=== PATIENT | female | born 1930 | race Caucasian/White ===

== ENCOUNTER 2018-03-08 15:04 | Emergency (ER) | payer MEDICARE, MEDICAID ==
[~2018-03-08] VITALS: Ht 167.6 cm; Wt 63.5 kg
[2018-03-08 16:38] LABS: Albumin 2.1 g/dL (3.4-5.0); BUN/Creatinine Ratio 5.4; Bilirubin, Total 0.7 mg/dL (0.2-1.0); Calcium 7.9 mg/dL (8.5-10.1); Total Protein 7.2 g/dL (6.4-8.2)
[2018-03-08 16:47] LABS: Basophils # (auto) 0 uL; Basophils % (auto) 0.2 % (0.0-2.0); Eosinophils # (auto) 0 uL; Eosinophils % (auto) 0.1 % (0.0-7.0); Hematocrit 29.9 % (36.0-46.0); Hemoglobin 9.8 g/dL (12.2-16.2); Lymphocytes # (auto) 0.2 uL; Lymphocytes % (auto) 3.1 % (10.0-50.0); Mean Corpuscular Hemoglobin 29.7 pg (28.0-32.0); Mean Corpuscular Hgb Conc. 32.7 g/dL (32.0-36.0); Mean Corpuscular Volume 90.9 fL (80.0-100.0); Monocytes # (auto) 0.2 uL; Monocytes % (auto) 3.5 % (0.0-12.0); Neutrophils # (auto) 5.4 uL; Neutrophils % (auto) 93.1 % (37.0-80.0); Nucleated Red Blood Cells % 0.1 %; Platelet Count (auto) 258 10^3/uL (140-450); Red Blood Cells 3.29 10^6/uL (4.0-5.20); White Blood Cell 5.8 10^3/uL (4.4-10.8)
[2018-03-08 19:16] VITALS: BP 141/61
[2018-03-08] MEDS ORDERED: MAGNESIUM CITRATE SOLUTION 300 ML BTL PO ONE (20:00)
[2018-03-08] MEDS ORDERED: MAGNESIUM CITRATE SOLUTION 300 ML BTL ONE (20:09)
== END 2018-03-08 20:43 | disposition home or self-care (01) ==
LOC: ER 15:04
DX: S00.03XA Contusion of scalp, initial encounter (principal); E11.22 Type 2 diabetes mellitus with diabetic chronic kidney disease; I12.0 Hypertensive chronic kidney disease with stage 5 chronic kidney disease or end stage renal disease; N18.6 End stage renal disease; Z99.2 Dependence on renal dialysis; W05.0XXA Fall from non-moving wheelchair, initial encounter; Y93.89 Activity, other specified; Y99.8 Other external cause status; Y92.009 Unspecified place in unspecified non-institutional (private) residence as the place of occurrence of the external cause
CPT/HCPCS: 36415; 70450; 70486; 80053; 85025